=== PATIENT | female | born 1980 | race Caucasian/White ===

== ENCOUNTER 2019-08-26 06:03 | Day surgery (SDC) | payer OTHER ==
[2019-08-25 12:03] LABS: BASOPHILS % (AUTO) 0.4 % (0.0-2.0); EOSINOPHILS # (AUTO) 0.2 K/uL (0-0.4); EOSINOPHILS % (AUTO) 2.1 % (0.0-4.0); HEMOGLOBIN 11.1 g/dL (12.0-16.0); LYMPHOCYTES % (AUTO) 23.8 % (20.5-51.1); MEAN CORPUSCULAR HEMOGLOBIN 25 pg (27-31); MEAN CORPUSCULAR HGB CONC 34 g/dL (33-37); MEAN CORPUSCULAR VOLUME 74.4 fL (80-94); MONOCYTES # (AUTO) 0.6 K/uL (0.8-1.0); MONOCYTES % (AUTO) 6.7 % (1.7-9.3); NEUTROPHILS # (AUTO) 5.7 K/uL (1.8-7.7); PLATELET COUNT (AUTO) 448 K/uL (140-450); RED BLOOD CELL COUNT(AUTO) 4.43 MIL/uL (4.20-5.40); RED CELL DISTRIBUTION WIDTH 15.7 % (11.6-13.7); WHITE BLOOD COUNT (AUTO) 8.5 K/uL (4.8-10.8)
[2019-08-25 14:05] LABS: CARBON DIOXIDE 31.9 mmol/L (21-32); POTASSIUM 3.3 mmol/L (3.5-5.1)
[2019-08-25 14:06] LABS: ALBUMIN 3.8 g/dL (3.4-5.0); ANION GAP 8.4 (8-16); CREATININE 0.9 mg/dL (0.6-1.3); TOTAL BILIRUBIN 0.1 mg/dL (0.0-1.0)
[~2019-08-26] VITALS: Ht 162.6 cm; Wt 99.8 kg
[2019-08-26] MEDS ORDERED: BUPIVACAINE-MPF 0.5% 30 ML VIAL INJ ONE ×2 (07:20→09:17)
[2019-08-26] MEDS ORDERED: ONDANSETRON 4 MG/2 ML VIAL ONE (07:40)
[2019-08-26] MEDS ORDERED: ROCURONIUM 50 MG/5 ML VIAL IV ONE (07:40)
[2019-08-26] MEDS ORDERED: NEOSTIGMINE 1:1000 10 MG/10 ML VIAL ONE (07:40)
[2019-08-26] MEDS ORDERED: fentaNYL 0.05 MG/ML VIAL ONE (07:40)
[2019-08-26] MEDS ORDERED: SUCCINYLCHOLINE CHLORIDE 200 MG/10 ML VIAL IVP ONE (07:40)
[2019-08-26] MEDS ORDERED: DESFLURANE 240 ML BTL INH ONE (07:40)
[2019-08-26] MEDS ORDERED: PROPOFOL 200 MG/20 ML VIAL IV ONE (07:40)
[2019-08-26] MEDS ORDERED: GLYCOPYRROLATE 0.2 MG/ML VIAL ONE (07:40)
[2019-08-26] MEDS ORDERED: DEXAMETHASONE 4 MG/ML VIAL ONE (07:40)
[2019-08-26] MEDS ORDERED: KETOROLAC 30 MG/ML VIAL ONE (07:40)
[2019-08-26] MEDS ORDERED: ONDANSETRON 4 MG/2 ML VIAL IVP PRN ×2 (08:10→09:35)
[2019-08-26] MEDS ORDERED: HYDROmorphone 1 MG/ML AMP IVP PRN ×2 (08:10→09:35)
[2019-08-26] MEDS ORDERED: ACETAMINOPHEN 325 MG TAB PO PRN (09:35)
[2019-08-26] MEDS ORDERED: HYDROcodone/APAP 5/325 MG 1 TAB TAB PO PRN (09:35)
[2019-08-26] MEDS ORDERED: MORPHINE SULFATE 2 MG/ML SYR IVP PRN (09:35)
[2019-08-26] MEDS ORDERED: MORPHINE SULFATE 4 MG/ML SYR IV PRN (09:35)
[2019-08-26] MEDS: HYDROmorphone PFS 2 MG/ML SYR ONE ×4 (09:51→10:21)
== END 2019-08-26 12:30 | disposition home or self-care (01) ==
LOC: MOR 06:03 → MMU 06:04 → MOR 12:30
PROVIDERS: ATTEND Surgery
DX: K80.10 Calculus of gallbladder with chronic cholecystitis without obstruction (principal); K42.9 Umbilical hernia without obstruction or gangrene; D18.01 Hemangioma of skin and subcutaneous tissue; D64.9 Anemia, unspecified; E66.9 Obesity, unspecified; K21.9 Gastro-esophageal reflux disease without esophagitis; E78.5 Hyperlipidemia, unspecified; Z68.38 Body mass index [BMI] 38.0-38.9, adult; Z80.3 Family history of malignant neoplasm of breast; Z80.41 Family history of malignant neoplasm of ovary
CPT/HCPCS: 19120; 36415; 47562; 49585; 71045; 80053; 81025; 82374; 85025; 86886; 86900; 86901; 88304; 88305; J0330; J0690; J1100; J1170; J1885; J2405; J2704; J2710; J3010; J3490; J7030; J7060; J7120